=== PATIENT | male | born 1960 | race Caucasian/White ===

== ENCOUNTER 2016-03-15 05:30 | Day surgery (SDC) | payer OTHER ==
[2016-03-09 12:52] VITALS: BMI 31.6
[2016-03-15] MEDS ORDERED: BUPIVACAINE HCL/PF 0.5% (5MG/ML) 10 ML VIAL ONE (11:51)
[2016-03-15] MEDS ORDERED: PROPOFOL 20 ML ONE (12:01)
[2016-03-15] MEDS ORDERED: DEXAMETHASONE SOD PHOSPHATE 4 MG/1 ML VIAL ONE (12:01)
[2016-03-15] MEDS ORDERED: KETOROLAC TROMETHAMINE 30 MG/1 ML VIAL ONE (12:01)
[2016-03-15] MEDS ORDERED: SODIUM CHLORIDE 0.9% P/F 10 ML VIAL IJ ONE (12:01)
[2016-03-15] MEDS ORDERED: ceFAZolin SODIUM 1 GM VIAL ONE (12:01)
[2016-03-15] MEDS ORDERED: MIDAZOLAM HCL 2 MG/2 ML SINGLE DOSE VIAL ONE (12:02)
[2016-03-15] MEDS ORDERED: ROCURONIUM BROMIDE 50 MG/5 ML VIAL ONE ×2 (12:02→13:58)
--- NOTE | 2016-03-15 12:17 | HP ---
Admitting History and Physical - Admission Chief Complaint: Patient presents for planned robotic bilateral inguinal hernia repair with mesh with Dr. Mata on 03/15/16. History of Present Illness: Bilateral reducible inguinal hernias causing pain and discomfort with exertion. History Source: Patient Limitations to Obtaining History: No Limitations - Past Medical History Cardiovascular: Yes: CAD, HTN, Hyperlipdemia Endocrine: Yes: Diabetes Mellitus - Past Surgical History Past Surgical History: Yes: Hernia Repair - Alcohol/Substance Use Hx Alcohol Use: No Home Medications - Allergies Allergies/Adverse Reactions: Allergies Allergy/AdvReac Type Severity Reaction Status Date / Time No Known Allergies Allergy Verified 03/09/16 12:44 - Home Medications Home Medications: Ambulatory Orders Aspirin [ASA -] 81 mg PO DAILY 01/10/14 Metformin HCl [Glucophage -] 500 mg PO BID 01/10/14 Metoprolol Tartrate [Lopressor -] 50 mg PO DAILY 01/10/14 Atorvastatin Ca [Lipitor] 80 mg PO HS 03/02/16 Oxycodone HCl/Acetaminophen [Percocet 5-325 mg Tablet] 1 tab PO Q4H PRN #20 tablet MDD 6 03/15/16 Review of Systems - Review of Systems Constitutional: reports: No Symptoms Cardiovascular: reports: No Symptoms Respiratory: reports: No Symptoms Gastrointestinal: reports: No Symptoms Musculoskeletal: reports: No Symptoms Hematology/Lymphatic: reports: No Symptoms Physical Examination Vital Signs: Vital Signs Temperature 98.1 F 03/15/16 10:58 Pulse Rate 80 03/15/16 10:58 Respiratory Rate 18 03/15/16 10:58 Blood Pressure 116/77 03/15/16 10:58 O2 Sat by Pulse Oximetry (%) 97 03/15/16 10:58 Constitutional: Yes: Well Nourished Eyes: Yes: WNL HENT: Yes: WNL Neck: Yes: WNL Cardiovascular: Yes: WNL Respiratory: Yes: WNL Gastrointestinal: Yes: WNL, Hernia (bilat inguinal) Extremities: Yes: WNL Problem List - Problems (1) Left inguinal hernia Assessment/Plan: Patient presents for planned robotic bilateral inguinal hernia repair with mesh with Dr. Mata on 03/15/16 Code(s): K40.90 - UNIL INGUINAL HERNIA, W/O OBST OR GANGR, NOT SPCF RECUR (2) Inguinal hernia Assessment/Plan: Patient presents for planned robotic bilateral inguinal hernia repair with mesh with Dr. Mata on 03/15/16 Code(s): K40.90 - UNIL INGUINAL HERNIA, W/O OBST OR GANGR, NOT SPCF RECUR Assessment/Plan Patient presents for planned robotic bilateral inguinal hernia repair with mesh with Dr. Mata on 03/15/16
[2016-03-15] MEDS ORDERED: ceFAZolin SODIUM 1 GM VIAL IVPB ONE (12:27)
[2016-03-15] MEDS ORDERED: BUPIVACAINE HCL/PF 0.5% (5MG/ML) 10 ML VIAL IJ ONE (12:48)
[2016-03-15] MEDS ORDERED: GLYCOPYRROLATE 0.2 MG/1 ML VIAL ONE (14:58)
[2016-03-15] MEDS ORDERED: NEOSTIGMINE METHYLSULFATE 0.5 MG/ML - 10 ML MDV ONE (14:58)
[2016-03-15] MEDS ORDERED: ONDANSETRON 4 MG/2 ML VIAL IVPUSH PRN (15:20)
[2016-03-15] MEDS ORDERED: oxyCODONE HCL 5 MG TABLET PO PRN ×2 (15:20→15:32)
[2016-03-15] MEDS ORDERED: PROMETHAZINE HCL 25 MG/1 ML VIAL IVPUSH PRN (15:20)
--- NOTE | 2016-03-15 15:24 | OP ---
[id number] inguinal hernias, recurrent left inguinal hernia Operation: Robotic laparoscopic repair recurrent left inguinal hernia with mesh Findings: Recurrent left inguinal hernia Post-Operative Diagnosis: Other (Left inguinal hernia) Surgeon: Robert Mata Media Aid: Rufino Ortiz (Abdi PAZabrinaC) Anesthesiologist/CONCRETE MASON: Nicolas Burns Jr. Anesthesia: General Estimated Blood Loss (mls): 5 Operative Report Dictated: Yes
[2016-03-15] MEDS ORDERED: OXYCODONE/APAP 5/325MG COMBO TABLET PO PRN (15:28)
[2016-03-15] MEDS ORDERED: LACTATED RINGERS SOLUTION 1,000 ML IV SCH (15:30)
[2016-03-15] MEDS ORDERED: ACETAMINOPHEN 325 MG TABLET (FP) PO PRN (15:32)
--- NOTE | 2016-03-15 16:13 | OP ---
DATE OF OPERATION: 03/15/2016 PROCEDURE: Robotic-assisted laparoscopic recurrent left inguinal hernia repair with mesh. PREOPERATIVE DIAGNOSES: Recurrent left inguinal hernia. Right inguinal hernia. POSTOPERATIVE DIAGNOSES: Recurrent left inguinal hernia. Absent right inguinal hernia. SURGEON: Robert Mata MD YOUTH ADVOCATE: TABATHA Ortiz SECOND COTTON PULLER: TABATHA Patton ANESTHESIA: General endotracheal. FINDINGS AND PROCEDURE: This is a 55-year-old male with history of a left inguinal hernia, status post laparoscopic left inguinal hernia repair, who had sudden onset of left inguinal bulge and pain 2 weeks prior, prompting an emergency department visit. At the time of evaluation, the hernia was noted to be reducible, so the patient was seen at the office and was noted to have a recurrent left inguinal hernia and a possible right inguinal hernia, so patient was advised to undergo a left inguinal hernia repair and consent was obtained after discussing the risks, benefits and alternatives to the procedure. The patient was brought to the operating room and placed in supine position. General endotracheal anesthesia was administered. The abdomen was prepped and draped in the usual sterile fashion. A Mayorga catheter was also inserted. The peritoneal cavity was entered using the Veress needle technique via an 8 mm supraumbilical transverse incision using scalpel blade number 15. A pneumoperitoneum was then established. This was followed by insertion of an 8-mm trocar into the peritoneal cavity. The 3-D 30-degree laparoscope was inserted and the peritoneal cavity was carefully inspected to rule out inadvertent injury. Two 8-mm ports were inserted on each side of the midline 7 mm away from the umbilical port. The patient was then placed in a steep Trendelenburg position. The target organ was set and the robotic arms were docked. A fenestrated bipolar grasper was inserted in the left-sided port and the EndoWrist anamaria connected to monopolar cautery was inserted in the right-sided port. The undersigned scrubbed out and commenced the consult part of the procedure. Both inguinal regions were carefully inspected and on the right side no direct or indirect hernia was noted. On the left side, a recurrent indirect hernia containing a loop of sigmoid colon was noted. The sigmoid colon was carefully reduced back into the peritoneal cavity. The peritoneal cavity was incised at the level of the anterior-superior iliac spine to gain access to the preperitoneal space. This was done using the EndoWrist scissors connected to monopolar cautery. The preperitoneal space was carefully created with dissection of the old mesh away from the posterior abdominal wall. The inferior epigastric vessels were carefully preserved. This dissection was carried laterally toward the anterior-superior iliac spine and inferiorly carried about 5 cm below the iliopubic tract. Medially, this was carried toward the symphysis pubis. After adequate space was created, the severely attenuated internal ring was tightened using V-Loc 0 non-absorbable suture apposing the lateral aspect of the ring. After this was done, the 11 x 15-cm ProGrip mesh which was trimmed by 1 cm superiorly was then deployed to cover the hernia defect with at least 3 to 5 cm overlap. After the deployment was deemed satisfactory, the peritoneum was then closed with a running V-Loc 2-0 absorbable suture. The peritoneal cavity was then again carefully inspected and it was noted to be free of active bleeding or inadvertent injury. All the instruments were removed and the robotic arms were undocked. The pneumoperitoneum was evacuated and the ports were removed. The wounds were closed with subcuticular Biosyn 4-0 sutures for the skin and reinforced with Dermabond. The Mayorga catheter was removed and the patient was extubated. The patient was transferred to the postanesthesia care unit in satisfactory condition. ESTIMATED BLOOD LOSS: About 5 mL. WOUND CLASS: Clean; the patient received a gram of Ancef prior to the start of the procedure. Drea [id number] MTDD
[2016-03-15 16:20] VITALS: TEMP 98.5
--- NOTE | 2016-03-15 17:41 | SURG ---
Surgery Gas Roller Operator Note Gas Roller Operator: Rufino Ortiz PA-C Date of Service: 03/15/16 Diagnosis: Recurrent left inguinal hernia Procedure: Robotic-assisted laparoscopic recurrent left inguinal hernia repair with mesh I, Kimberly Patton PA-C, was present as second assist along with Rufino Ortiz PA-C as oncology physician assistant for the entirety of the operative procedure. For further detail , please refer to operative report. Visit type - Case Type Case Type: Scheduled Admission - New patient This patient is new to me today: Yes Date on this admission: 03/15/16
[2016-03-15 18:14] VITALS: BP 103/58; PULSE 86
== END 2016-03-15 18:00 | disposition home or self-care (01) ==
LOC: JASU-SURG 05:30
PROVIDERS: ATTEND Surgery
PROC: 8E0W4CZ Robotic Assisted Procedure of Trunk Region, Percutaneous Endoscopic Approach (ICD-10-PCS; 2016-03-15)
PROC: 0YU64JZ Supplement Left Inguinal Region with Synthetic Substitute, Percutaneous Endoscopic Approach (ICD-10-PCS; principal; 2016-03-15 11:30)
DX: K40.91 Unilateral inguinal hernia, without obstruction or gangrene, recurrent (principal)
CPT/HCPCS: 49651; S2900; 94760

== ENCOUNTER 2018-11-12 21:40 | Emergency (ER) | payer OTHER ==
[2018-11-12 22:00] VITALS: TEMP 98.1; BMI 31.4
--- NOTE | 2018-11-12 22:44 | PDOC ---
*Physical Exam - Vital Signs Last Vital Signs Temp Pulse Resp BP Pulse Ox 98.1 F 70 18 160/85 97 11/12/18 21:58 11/12/18 21:58 11/12/18 21:58 11/12/18 21:58 11/12/18 21:58 Medical Decision Making - Medical Decision Making 11/12/18 22:43 Patient seen by the advanced practice provider under my direct supervision. Ancillary testing reviewed as necessary. I agree with plan as outlined by the advanced practice provider. *DC/Admit/Observation/Transfer Diagnosis at time of Disposition: Abdominal pain - Referrals Referrals: Yulia Ruano [Primary Care Provider] - - Patient Instructions - Post Discharge Activity
--- NOTE | 2018-11-12 22:49 | PDOC ---
History of Present Illness - General Chief Complaint: Pain Stated Complaint: SOB/ABD DISTENTION Time Seen by Provider: 11/12/18 22:41 History Source: Patient - History of Present Illness Initial Comments: 11/12/18 22:42 57 year old male since 3 pm c/o lower abdominal pain, distention and belching., + nausea. denies chest , upper abdominal pain, fever/ chills, denies flank pain , testicular pain, urinary symptoms. HX: cardiac stent , DM, hyperlipidemia, Dr. MEHTA: PCP Cardiology : Dr. Sebastian Past History - Past Medical History Allergies/Adverse Reactions: Allergies Allergy/AdvReac Type Severity Reaction Status Date / Time No Known Allergies Allergy Verified 11/12/18 21:57 Home Medications: Ambulatory Orders Aspirin [ASA -] 81 mg PO DAILY 01/10/14 Metoprolol Tartrate [Lopressor -] 50 mg PO DAILY 01/10/14 metFORMIN HCL [Glucophage -] 500 mg PO BID 01/10/14 Atorvastatin Ca [Lipitor] 80 mg PO HS 03/02/16 Oxycodone HCl/Acetaminophen [Percocet 5-325 mg Tablet] 1 tab PO Q4H PRN #20 tablet MDD 6 03/15/16 Anemia: No Asthma: No Cancer: No Cardiac Disorders: Yes (mi) CVA: No COPD: No CHF: No Dementia: No Diabetes: Yes GI Disorders: No Disorders: No HTN: Yes Hypercholesterolemia: Yes Liver Disease: No Seizures: No Thyroid Disease: No - Surgical History Abdominal Surgery: Yes (bilateral inguinal hernias) Appendectomy: No Cardiac Surgery: Yes (ONE STENT PLACED) Cholecystectomy: No Lung Surgery: No Neurologic Surgery: No Orthopedic Surgery: No - Immunization History Immunization Up to Date: Yes - Suicide/Smoking/Psychosocial Hx Smoking Status: Yes Smoking History: Current every day smoker Have you smoked in the past 12 months: No Number of Cigarettes Smoked Daily: 20 Information on smoking cessation initiated: No 'Breaking Loose' booklet given: 03/09/16 Hx Alcohol Use: No Drug/Substance Use Hx: No Substance Use Type: None Hx Substance Use Treatment: No *Physical Exam - Vital Signs Last Vital Signs Temp Pulse Resp BP Pulse Ox 98.1 F 70 18 160/85 97 11/12/18 21:58 11/12/18 21:58 11/12/18 21:58 11/12/18 21:58 11/12/18 21:58 - Physical Exam General Appearance: Yes: Appropriately Dressed Respiratory/Chest: positive: Lungs Clear, Normal Breath Sounds Cardiovascular: positive: Regular Rhythm, Regular Rate Gastrointestinal/Abdominal: positive: Tender (RLQ pain), Soft, Increased Bowel Sounds Male Genitalia: positive: normal genitalia, inguinal hernia (b/l reducible) Musculoskeletal: positive: Normal Inspection. negative: CVA Tenderness Extremity: positive: Normal Capillary Refill, Normal Inspection, Normal Range of Motion Integumentary: positive: Normal Color, Dry, Warm Neurologic: positive: Fully Oriented, Alert, Normal Mood/Affect ED Treatment Course - LABORATORY CBC & Chemistry Diagram: 11/12/18 23:15 11/12/18 23:15 Progress Note - Progress Note Progress Note: A: RLQ abdominal pain p: CBC CMP UA CTAP: 5 mm nodule left lower lobe, advise followup Subcentimeter right hepatic cyst or hemangioma No bowel obstruction, colitis, diverticulitis, free fluid or free air. Normal appendix. Unremarkable pancreas and gallbladder. Subcentimeter cortical hypodensity right kidney Tiny umbilical hernia containing fat. Moderate right greater than left inguinal region hernias containing fat, probably recurrent on left side given presence of hernia repair mesh Medical Decision Making - Medical Decision Making 11/13/18 01:[address] findings discussed with patient. patient reports that he is feeling better now. patient was given GI referral for outpatient follow up. 11/13/18 03:17 *DC/Admit/Observation/Transfer Diagnosis at time of Disposition: Abdominal pain Qualifiers: Abdominal location: lower abdomen, unspecified Qualified Code(s): R10.30 - Lower abdominal pain, unspecified - Discharge Dispostion Disposition: HOME Condition at time of disposition: Improved - Referrals Referrals: Yulia Ruano [Primary Care Provider] - Teresa Lo MD [Staff Physician] - Call tomorrow Torey Crystal DO [Staff Physician] - Call tomorrow - Patient Instructions Printed Discharge Instructions: DI for Abdominal Pain-Adult Additional Instructions: it is very important that you follow up with your doctor and a oil and gas field technician as soon as possible. you were given referrals to a oil and gas field technician. your CAT scan did not show any acute infection or obstruction. There was some abnormal findings that you need to follow up with your primary doctor. copy of the CAT scan was given To you. Additional Instructions: * Please call your personal physician to report your Emergency Department visit and to report your progress, if any. * If there is no improvement in symptoms in 2 days call your physician. * Return to the Emergency Department for any worsening symptoms. - Post Discharge Activity Forms/Work/School Notes: Back to Work
[2018-11-12] MEDS ORDERED: ONDANSETRON 4 MG/2 ML VIAL IVPUSH ONE (23:00)
[2018-11-12] MEDS ORDERED: ONDANSETRON 4 MG/2 ML VIAL ONE (23:13)
[2018-11-12 23:39] LABS: EOS % 2.1 % (0-4.5); HEMATOCRIT 43.9 % (35.4-49); HEMOGLOBIN 14.6 GM/dL (11.7-16.9); LYMPH % 36.7 % (8-40); MCHC 33.2 g/dl (32.0-35.9); MEAN CELL VOLUME 90.4 fl (80-96); MEAN PLT VOLUME 9.8 fl (7.5-11.1); MONO % 5.7 % (3.8-10.2); NEUT % 54.5 % (42.8-82.8); PLATELET COUNT 132 K/MM3 (134-434); RBC 4.85 M/mm3 (4.00-5.60); RDW 12.5 % (11.9-15.9); WHITE BLOOD COUNT 9.2 K/mm3 (4.0-10.0)
[2018-11-13 00:15] LABS: ALBUMIN 3.6 g/dl (3.4-5.0); BILIRUBIN,TOTAL 0.3 mg/dL (0.2-1); BLOOD UREA NITROGEN 20.2 mg/dL (7-18); CALCIUM 9.3 mg/dL (8.5-10.1); CREATININE 0.9 mg/dL (0.55-1.3); POTASSIUM 4.2 mmol/L (3.5-5.1); TOT PROT 7.3 g/dl (6.4-8.2)
[2018-11-13 00:19] LABS: LIPASE 310 U/L (73-393)
[2018-11-13 00:27] LABS: PH,URINE 5.5 (5.0-8.0); URINE APPEARANCE CLEAR; URINE BILIRUBIN NEGATIVE (NEGATIVE); URINE COLOR YELLOW; URINE GLUCOSE (UA) NEGATIVE (NEGATIVE); URINE KETONE NEGATIVE (NEGATIVE); URINE LEUK ESTERASE NEGATIVE (NEGATIVE); URINE NITRITE NEGATIVE (NEGATIVE); URINE PROTEIN NEGATIVE (NEGATIVE)
[2018-11-13] MEDS ORDERED: SODIUM CHLORIDE 500 ML IV STA (01:14)
[2018-11-13 02:28] VITALS: BP 136/79; PULSE 64
--- NOTE | 2018-11-13 12:43 | EKG ---
Test Reason : Blood Pressure : / mmHG Vent. Rate : 065 BPM Atrial Rate : 065 BPM P-R Int : 126 ms QRS Dur : 092 ms QT Int : 426 ms P-R-T Axes : 065 032 042 degrees QTc Int : 443 ms NORMAL SINUS RHYTHM INFERIOR INFARCT (CITED ON OR BEFORE 06-OCT-2006) ABNORMAL ECG WHEN COMPARED WITH ECG OF 29-MAY-2017 10:35, NO SIGNIFICANT CHANGE WAS FOUND Confirmed by Abrahan Mcgregor MD ([id number]) on 11/13/2018 12:42:55 PM Referred By: Confirmed By:Abrahan Mcgregor MD
== END 2018-11-13 02:58 | disposition home or self-care (01) ==
LOC: JER 21:40
PROC: 3E0337Z Introduction of Electrolytic and Water Balance Substance into Peripheral Vein, Percutaneous Approach (ICD-10-PCS; principal; 2018-11-12)
PROC: 3E033GC Introduction of Other Therapeutic Substance into Peripheral Vein, Percutaneous Approach (ICD-10-PCS; 2018-11-12)
DX: R10.30 Lower abdominal pain, unspecified (principal); I25.10 Atherosclerotic heart disease of native coronary artery without angina pectoris; I10 Essential (primary) hypertension; Z95.5 Presence of coronary angioplasty implant and graft; I25.2 Old myocardial infarction; E11.9 Type 2 diabetes mellitus without complications; Z79.84 Long term (current) use of oral hypoglycemic drugs
CPT/HCPCS: 36415; 74177-TC; 80053; 81003; 83605; 83690; 84484; 85025; 93005; 93010; 96361; 96374; 99282-25

== ENCOUNTER 2020-04-22 15:33 | Inpatient (IN) | payer OTHER ==
[2020-04-22 16:29] LABS: BASO % 1.5 % (0-2.0); EOS % 1.1 % (0-4.5); HEMOGLOBIN 14.2 GM/dl (11.7-16.9); LYMPH % 27.5 % (8-40); MCHC 33.9 g/dl (32.0-35.9); MEAN CELL VOLUME 88.5 fl (80-96); MEAN PLT VOLUME 9.2 fl (7.5-11.1); MONO % 5.5 % (3.8-10.2); NEUT % 64.4 % (42.8-82.8); PLATELET COUNT 164 K/MM3 (134-434); RBC 4.74 M/mm3 (4.00-5.60); RDW 11.8 % (11.9-15.9); WHITE BLOOD COUNT 9.7 K/mm3 (4.0-10.8)
[2020-04-22 16:43] LABS: ALBUMIN 3.6 g/dl (3.4-5.0); BILIRUBIN,TOTAL 0.7 mg/dl (0.2-1); CALCIUM 8.9 mg/dl (8.5-10); CREATININE 0.6 mg/dl (0.55-1.3); POTASSIUM 3.8 mmol/L (3.5-5.1)
[2020-04-22] MEDS ORDERED: LOCK ITEM NR ONE (18:08)
[2020-04-22] MEDS ORDERED: SODIUM CHLORIDE 0.9% 500 ML INFUS.BAG IV ONE (20:37)
[2020-04-22 22:34] VITALS: BMI 31.5
[2020-04-23] MEDS ORDERED: INSULIN SLIDING SCALE (NOVOLOG) 1 VIAL SQ SCH ×2 (07:00)
[2020-04-23] MEDS: SODIUM CHLORIDE 1,000 ML IV SCH ×2 (07:31→21:12)
[2020-04-23 08:16] LABS: HEMOGLOBIN 12.4 GM/dl (11.7-16.9); MCH 29.1 pg (25.7-33.7); MCHC 32.7 g/dl (32.0-35.9); MEAN CELL VOLUME 89.1 fl (80-96); MEAN PLT VOLUME 9.2 fl (7.5-11.1); PLATELET COUNT 147 K/MM3 (134-434); RBC 4.27 M/mm3 (4.00-5.60); WHITE BLOOD COUNT 6.4 K/mm3 (4.0-10.8)
[2020-04-23 08:18] LABS: CALCIUM 8.2 mg/dl (8.5-10); CREATININE 0.7 mg/dl (0.55-1.3); MAGNESIUM 1.5 mg/dL (1.8-2.4); POTASSIUM 4.1 mmol/L (3.5-5.1)
[2020-04-23] MEDS: METOPROLOL TARTRATE 50 MG TABLET (FP) PO SCH (10:28)
[2020-04-23] MEDS: PANTOPRAZOLE SODIUM 40 MG VIAL IVPUSH SCH (10:28)
[2020-04-23] MEDS: ASPIRIN 81 MG CHEWABLE TABLETS PO SCH (10:28)
[2020-04-23] MEDS: RAMIPRIL 2.5 MG CAPSULE PO SCH (10:28)
[2020-04-23 10:37] LABS: AMYLASE 74 U/L (25-115)
[2020-04-23] MEDS: INSULIN (NOVOLOG) ASPART 100 UNITS/ML 10ML VIAL SQ SCH ×3 (11:49→21:13)
[2020-04-23] MEDS ORDERED: MAGNESIUM SULF 50% (8.12 MEQ/2 ML-1 GM VIAL) IVPB ONE (12:09)
[2020-04-23 12:40] LABS: LIPASE 424 U/L (73-393)
[2020-04-23] MEDS ORDERED: MAGNESIUM SULFATE IN WATER 2 GM/50 ML IVPB IVPB ONE (12:45)
[2020-04-23] MEDS ORDERED: ATORVASTATIN CA 80 MG TABLET (FP) PO SCH (22:00)
[2020-04-24] MEDS: INSULIN (NOVOLOG) ASPART 100 UNITS/ML 10ML VIAL SQ SCH ×3 (06:44→15:58)
[2020-04-24 07:43] LABS: BASO % 2.2 % (0-2.0); EOS % 1.6 % (0-4.5); HEMATOCRIT 36.8 % (35.4-49); HEMOGLOBIN 11.9 GM/dl (11.7-16.9); LYMPH % 35.2 % (8-40); MCH 28.4 pg (25.7-33.7); MCHC 32.2 g/dl (32.0-35.9); MEAN CELL VOLUME 88.1 fl (80-96); MEAN PLT VOLUME 8.7 fl (7.5-11.1); MONO % 7.4 % (3.8-10.2); NEUT % 53.6 % (42.8-82.8); PLATELET COUNT 145 K/MM3 (134-434); RBC 4.18 M/mm3 (4.00-5.60); WHITE BLOOD COUNT 5.6 K/mm3 (4.0-10.8)
[2020-04-24 07:54] LABS: ALBUMIN 3.1 g/dl (3.4-5.0); BILIRUBIN,TOTAL 0.3 mg/dl (0.2-1); CALCIUM 8.1 mg/dl (8.5-10); CREATININE 0.6 mg/dl (0.55-1.3); POTASSIUM 4.7 mmol/L (3.5-5.1); TOT PROT 6.2 g/dl (6.4-8.2)
[2020-04-24 08:05] LABS: BILIRUBIN,DIRECT 0.1 mg/dL (0.0-0.2)
[2020-04-24] MEDS: METOPROLOL TARTRATE 50 MG TABLET (FP) PO SCH (09:44)
[2020-04-24] MEDS: RAMIPRIL 2.5 MG CAPSULE PO SCH (09:44)
[2020-04-24] MEDS: PANTOPRAZOLE SODIUM 40 MG VIAL IVPUSH SCH (09:45)
[2020-04-24] MEDS: ASPIRIN 81 MG CHEWABLE TABLETS PO SCH (09:45)
[2020-04-24 19:21] VITALS: BP 125/70; PULSE 60; TEMP 98.7
== END 2020-04-24 19:20 | disposition home or self-care (01) | DRG 282 ==
LOC: FER 15:33 → UNDOADMIN 20:59 → FM/S 20:59
PROVIDERS: ADMIT Hospitalist; ATTEND Family Medicine
DX: K85.90 Acute pancreatitis without necrosis or infection, unspecified (principal); R10.9 Unspecified abdominal pain; I25.10 Atherosclerotic heart disease of native coronary artery without angina pectoris; I10 Essential (primary) hypertension; E78.5 Hyperlipidemia, unspecified; E11.9 Type 2 diabetes mellitus without complications; I25.2 Old myocardial infarction; Z95.5 Presence of coronary angioplasty implant and graft; R94.5 Abnormal results of liver function studies
CPT/HCPCS: 36415; 71045-TC-FY; 74177-TC; 74182-TC; 80048; 80053; 80076; 81003; 82150; 82550; 82962; 83690; 83735; 84484; 85025; 85027; 87086; 93005; 99285-25; A9579; C1887; C9803; Q9967; U0003

== ENCOUNTER 2024-01-28 03:34 | Observation (INO) | payer OTHER ==
[2024-01-28 03:39] VITALS: BMI 31.4
[2024-01-28 04:18] LABS: BASO % 1.3 % (0-2.0); EOS % 2.1 % (0-4.5); HEMATOCRIT 36.4 % (35.4-49); HEMOGLOBIN 12.5 GM/dL (11.7-16.9); LYMPH % 41.2 % (8-40); MCHC 34.4 g/dl (32.0-35.9); MEAN CELL VOLUME 87.2 fl (80-96); MEAN PLT VOLUME 8.5 fl (7.5-11.1); MONO % 6.1 % (3.8-10.2); NEUT % 49.3 % (42.8-82.8); PLATELET COUNT 121 10^3/uL (134-434); RBC 4.18 M/mm3 (4.00-5.60); RDW 12.6 % (11.9-15.9); WHITE BLOOD COUNT 7.1 K/mm3 (4.0-10.0)
[2024-01-28 04:28] LABS: INR 0.95 (0.83-1.09); PROTHROMBIN TIME (PATIENT) 10.9 SEC (9.7-13.0)
[2024-01-28 04:31] LABS: ACTIVATED PTT 27.4 SECONDS (25.2-36.5)
[2024-01-28 04:36] LABS: CHLORIDE 103 mmol/L (98-107); POTASSIUM 3.5 mmol/L (3.5-5.1); SODIUM 140 mmol/L (136-145)
[2024-01-28 04:38] LABS: CALCIUM 8.7 mg/dL (8.5-10.1)
[2024-01-28 04:39] LABS: ALBUMIN 3.3 g/dl (3.4-5.0); ANION GAP 8 mmol/L (4-13); CO2 30 mmol/L (21-32); GLUCOSE,RANDOM 204 mg/dL (74-106)
[2024-01-28 04:42] LABS: CREATININE 1.1 mg/dL (0.55-1.3); SGOT/AST 12 U/L (15-37); SGPT/ALT 12 U/L (13-61)
[2024-01-28 04:43] LABS: BILIRUBIN,TOTAL 0.2 mg/dL (0.2-1)
[2024-01-28 04:44] LABS: TOT PROT 6.8 g/dl (6.4-8.2)
[2024-01-28 04:45] LABS: ALK PHOS 51 U/L (45-117)
[2024-01-28] MEDS: guaiFENesin 600 MG TABLET.ER (FP) PO ONE (04:45)
[2024-01-28 04:46] LABS: N-TERMINAL BNP 126.7 pg/ml (5-125)
[2024-01-28 05:14] LABS: MAGNESIUM 0.9 mg/dL (1.8-2.4)
[2024-01-28] MEDS ORDERED: POTASSIUM CHLORIDE ORAL LIQUID 20 MEQ/15 ML ONE (05:37)
[2024-01-28] MEDS ORDERED: MAGNESIUM SULFATE IN WATER 2 GM/50 ML IVPB IVPB ONE (05:38)
[2024-01-28] MEDS: POTASSIUM CHLORIDE ORAL LIQUID 20 MEQ/15 ML PO ONE (05:47)
[2024-01-28] MEDS: MAGNESIUM SULFATE IN WATER 2 GM/50 ML IVPB IVPB ONE (05:47)
[2024-01-28] MEDS ORDERED: ACETAMINOPHEN 325 MG TABLET (FP) PO PRN (08:35)
[2024-01-28] MEDS ORDERED: ASPIRIN COATED 81 MG TABLET.EC ONE (10:51)
[2024-01-28] MEDS ORDERED: HEPARIN NA (PORCINE) 5,000 UNITS/ML 1ML VIAL ONE ×2 (10:51→22:19)
[2024-01-28] MEDS ORDERED: PANTOPRAZOLE 40 MG TABLET PO ONE (10:51)
[2024-01-28] MEDS ORDERED: METOPROLOL TARTRATE 50 MG TABLET (FP) ONE (10:51)
[2024-01-28] MEDS ORDERED: methylPREDNISolone NA SUCC 40 MG/1 ML VIAL ONE ×2 (10:52→18:25)
[2024-01-28] MEDS: PANTOPRAZOLE 40 MG TABLET PO SCH (11:04)
[2024-01-28] MEDS: RAMIPRIL 2.5 MG CAPSULE PO SCH (11:04)
[2024-01-28] MEDS: HEPARIN NA (PORCINE) 5,000 UNITS/ML 1ML VIAL SQ SCH (11:04)
[2024-01-28] MEDS: METOPROLOL TARTRATE 50 MG TABLET (FP) PO SCH (11:04)
[2024-01-28] MEDS: methylPREDNISolone NA SUCC 40 MG/1 ML VIAL IVPUSH SCH (11:04)
[2024-01-28] MEDS: ASPIRIN COATED 81 MG TABLET.EC PO SCH (11:04)
[2024-01-28] MEDS ORDERED: ALBUTEROL SO4 2.5/IPRATROPIUM 0.5 INH SOL 3 ML VIAL.NEB. NEB ONE ×2 (12:22→18:24)
[2024-01-28] MEDS: ALBUTEROL SO4 2.5/IPRATROPIUM 0.5 INH SOL 3 ML VIAL.NEB. NEB SCH (12:26)
[2024-01-28] MEDS ORDERED: ATORVASTATIN CA 80 MG TABLET (FP) ONE (22:19)
[2024-01-28] MEDS: ATORVASTATIN CA 80 MG TABLET (FP) PO SCH (22:42)
[2024-01-29 01:27] VITALS: RESP 18; TEMP 97.5
[2024-01-29] MEDS ORDERED: methylPREDNISolone NA SUCC 40 MG/1 ML VIAL ONE ×2 (03:59→14:05)
[2024-01-29 07:07] VITALS: BP 137/78; PULSE 91
[2024-01-29 08:41] LABS: HEMATOCRIT 35.1 % (35.4-49); MCH 29.8 pg (25.7-33.7); MCHC 34.3 g/dl (32.0-35.9); MEAN PLT VOLUME 9.1 fl (7.5-11.1); PLATELET COUNT 131 10^3/uL (134-434); RBC 4.04 M/mm3 (4.00-5.60); RDW 12.6 % (11.9-15.9); WHITE BLOOD COUNT 8.4 K/mm3 (4.0-10.0)
[2024-01-29 09:16] LABS: POTASSIUM 4.5 mmol/L (3.5-5.1)
[2024-01-29 09:19] LABS: ALBUMIN 3.2 g/dl (3.4-5.0); BLOOD UREA NITROGEN 19.1 mg/dL (7-18); CALCIUM 8.9 mg/dL (8.5-10.1)
[2024-01-29 09:23] LABS: BILIRUBIN,TOTAL 0.3 mg/dL (0.2-1); CREATININE 1.1 mg/dL (0.55-1.3); TOT PROT 6.7 g/dl (6.4-8.2)
[2024-01-29] MEDS ORDERED: REGADENOSON 0.4 MG/5 ML PRE-FILLED SYRINGE IVPUSH ONE (10:07)
[2024-01-29] MEDS: REGADENOSON 0.4 MG/5 ML PRE-FILLED SYRINGE IVPUSH ONE (12:00)
[2024-01-29] MEDS ORDERED: PANTOPRAZOLE 40 MG TABLET PO ONE (14:04)
[2024-01-29] MEDS ORDERED: ALBUTEROL SO4 2.5/IPRATROPIUM 0.5 INH SOL 3 ML VIAL.NEB. NEB ONE ×2 (14:04→15:45)
[2024-01-29] MEDS ORDERED: METOPROLOL TARTRATE 50 MG TABLET (FP) ONE (14:04)
[2024-01-29] MEDS ORDERED: RAMIPRIL 5 MG CAPSULE ONE ×2 (14:05→14:12)
[2024-01-29] MEDS ORDERED: ASPIRIN COATED 81 MG TABLET.EC ONE (14:12)
== END 2024-01-29 17:00 | disposition home or self-care (01) ==
LOC: JER 03:34 → UNDOADMOB 06:35 → JERBED 06:35 → INTOOBSV 08:33 → OBSVTOIN 08:33 → JERBED 15:29
PROVIDERS: ADMIT Family Medicine; ATTEND Family Medicine
DX: J44.1 Chronic obstructive pulmonary disease with (acute) exacerbation (principal); I11.9 Hypertensive heart disease without heart failure; E11.9 Type 2 diabetes mellitus without complications; E78.5 Hyperlipidemia, unspecified; R05.9 Cough, unspecified; I25.2 Old myocardial infarction; Z87.891 Personal history of nicotine dependence; Z87.738 Personal history of other specified (corrected) congenital malformations of digestive system
CPT/HCPCS: 0241U-QW; 36415; 71045-TC-FY; 78452-TC; 80053; 80061; 82550; 82962; 83036; 83735; 83880; 84439; 84443; 84484; 85025; 85027; 85610; 85730; 93005; 93010; 93017; 99285-25; A9502; G0378; J1644; J2785